=== PATIENT | female | born 1955 | race Caucasian/White ===

== ENCOUNTER 2021-06-02 12:27 | Emergency (ER) | payer OTHER, SELFPAY ==
[2021-06-02 12:33] VITALS: BP 161/97; PULSE 77; RESP 16; TEMP 36.1; O2SAT 97
--- NOTE | 2021-06-02 12:52 | ED.GENADUL_ITS ---
Discharge Plan Discharge Details Chief Complaint: Orthopedic Primary Care Provider: Viktoriya Gamino ED Provider: Brian De La Fuente Home Meds and New Rx's Prescriptions: No Action aspirin 81 mg Tablet 81 mg PO DAILY 0RF HPI General Date/Time Provider Initiated Documentation: 06/02/21 12:50 . HPI Narrative: 66-year-old lady presents to the emergency room for evaluation of left knee pain. Patient states that yesterday after getting up from bed she intermittently twisted her left knee causing her extreme pain. She fell back into bed. She has noticed some swelling of the left knee as well as pain with ambulation since the incident. When walking with a limp. She has noticed some mild swelling. No direct trauma to the knee. No fall. Pain is better with immobilization as well as with Tylenol. Pain is described as a throbbing moderate severity Related Data Home Medications Medication Instructions Recorded Confirmed aspirin 81 mg tablet 81 mg PO DAILY 06/02/21 06/02/21 Allergies Allergy/AdvReac Type Severity Reaction Status Date / Time No Known Allergies Allergy Verified 06/02/21 12:37 General Stated Complaint: Orthopedic NICK: 4 Review of Systems Narrative: Constitutional negative for fever chills. GI she did have some nausea associate with the pain. MSK see HPI. Skin intact. neuro intact. hematology not on any blood thinner [facility] Social History Smoking/Tobacco Use Status: Current every day Tobacco Type: cigarettes Smoking risk assessment performed?: Yes Drug use: Never Substance use type: does not use Exam Narrative Exam Narrative: Awake alert [place] x3 calm. Comfortable sitting in wheelchair. Normal work of breathing Normal Left knee. No swelling. Effusion. No ligamentous laxity. There is some discomfort palpation to the medial aspect of the knee inferiorly neuro grossly intact skin intact Course X-rays of the knee interpreted by me reveal ice small effusion. No bony abnormalities. Patient will be sent home with a knee immobilizer. She was told to follow with orthopedics for further evaluation and possibly an outpatient MRI Vital Signs Vital signs: Vital Signs Temperature 36.1 C L 06/02/21 12:33 Pulse 77 06/02/21 12:33 Respiratory Rate 16 06/02/21 12:33 Blood Pressure 161/97 H 06/02/21 12:33 Pulse Oximetry 97 06/02/21 12:33 Temperature 36.1 C L 06/02/21 12:33 Temperature Source Temporal Artery Scan 06/02/21 12:33 Pulse 77 06/02/21 12:33 Respiratory Rate 16 06/02/21 12:33 Respiratory Effort 06/02/21 12:33 Blood Pressure 161/97 H 06/02/21 12:33 Blood Pressure Position Sitting 06/02/21 12:33 Pulse Oximetry 97 06/02/21 12:33 Oxygen Delivery Method Room Air 06/02/21 12:33 Oxygen Flow Rate 0 06/02/21 12:33 Pain Level 8 06/02/21 12:39
--- NOTE | 2021-06-02 13:26 | DI.RAD_ITS ---
Exam(s) XR KNEE LT 4V AP,LAT,TIMOTHY,PAT EXAM: XR KNEE LT 4V AP,LAT,TIMOTHY,PAT CLINICAL HISTORY: pain TECHNIQUE: COMPARISON: No exams were available for comparison FINDINGS: Four views were obtained. No gross knee joint effusion seen on the lateral view. No evidence of acu te fracture or dislocation. IMPRESSION: RADIATION DOSE DELIVERED: Total DLP
== END 2021-06-02 13:39 | disposition home or self-care (01) ==
PROVIDERS: Emergency Provider Emergency Medicine; PCP Family Medicine
DX: M23.8X2 Other internal derangements of left knee (principal); X50.1XXA Overexertion from prolonged static or awkward postures, initial encounter
CPT/HCPCS: 29505; 99283; 73564

== ENCOUNTER 2021-06-06 10:06 | Emergency (ER) | payer OTHER, SELFPAY ==
--- NOTE | 2021-06-06 10:07 | ED.GENADUL_ITS ---
Discharge Plan Disposition Patient Disposition: HOME Condition: Stable Discharge Details Clinical Impression: Left knee sprain Primary Care Provider: Unknown,Unknown ED Provider: Tia Gutierrez Home Meds and New Rx's Prescriptions: Continued aspirin 81 mg Tablet 81 mg PO DAILY 0RF Discharge Instructions Instructions: Knee Sprain (ED) Additional Instructions: Rest, ice, and elevate the affected area as much as possible. Alternate tylenol and motrin as needed and directed for pain. Keep your knee immobilizer in place at all times until follow-up with orthopedics. You may remove it to shower. Use your cane to help limit weightbearing on your left leg when ambulating. Follow-up with your scheduled appointment with orthopedics on June 15. Return immediately to the emergency department if you develop any worsening or new concerning symptoms. Stand Alone Forms: Work Release Referrals: Salomon Nice MD [ [facility] STAFF PHYSICIAN] - Discharge Data Discharge Date/Time-TO BE ENTERED AT DEPARTURE: 06/06/21 12:10 Discharge Physician: Tia Gutierrez Medical Decision Making 66-year-old female seen here 5 days ago for a left knee injury diagnosed with knee sprain and placed in a knee immobilizer and advised to follow-up with orthopedics presents with worsening left knee pain today after she twisted it again while walking in the bathroom. Blood pressure hypertensive. Patient appears comfortable and nontoxic. She has pain with valgus and varus stress but no obvious ligamentous laxity. There is no deformity, evidence of trauma or cellulitis. She is neurovascularly intact. Discussed with patient that she could have a worsening knee sprain at this time. Will give a dose of ibuprofen and refer for x-rays. X-ray reviewed and unremarkable. Patient admits to improvement in pain after ibuprofen. Patient advised to keep her immobilizer in place and use her cane when ambulating to limit weightbearing. She is advised to take Tylenol and ibuprofen regularly to help control her pain. She has a follow-up appointment with orthopedics on June 15. Usual and customary return precautions given prior to discharge. Medical Records Medical records reviewed: Yes I reviewed the patient's medical records. Medical records narrative: 06/02/21 XR KNEE LT 4V AP,LAT,TIMOTHY,PAT CLINICAL HISTORY:? pain TECHNIQUE:? COMPARISON:? No exams were available for comparison FINDINGS: Four views were obtained.? No gross knee joint effusion seen on the lateral view.? No evidence of acute fracture or dislocation. Imaging Data Radiologic Study: Radiologist's impression: XR Left Knee Exam date and time: 06/06/2021 10:57 AM Age: 66 years old Clinical indication: Pain; Knee; Left; Patient HX: Twisting injury, fall. TECHNIQUE: Imaging protocol: XR Left knee. Views: 3 views. COMPARISON: CR XR KNEE LT 4V AP,LAT,TIMOTHY,PAT 06/02/2021 1:17 PM FINDINGS: Bones/joints: No acute bony injury or malalignment the visualized left knee. Soft tissues: No radiopaque soft tissue foreign body. IMPRESSION: No acute bony injury or malalignment the visualized left knee. Lab Data Lab results reviewed: Yes I reviewed the patient's lab results. HPI General Mode of arrival: ambulatory . Date/Time Provider Initiated Documentation: 06/06/21 10:06 . Limitations to Documentation: no limitations . Information obtained by: patient . HPI Narrative: Patient is a 56-year-old female who presents to the ED with a complaint of left knee pain since a twisting injury several days ago now worse after twisting her knee again this morning. Patient states she did her knee 5 days ago and was seen here 4 days ago and had an x-ray and placed in a knee brace and advised to follow-up with orthopedics for a knee sprain. Patient states today she was in the bathroom and was turning and was having difficulty placing weight on her left leg due to pain and twisted her knee again. She states her pain a few days ago was in her left medial knee and now she is having pain in her left lateral k nee. She states she took Tylenol for pain without relief. She states she has not taken ibuprofen as it caused diarrhea earlier this week but states she took it on an empty stomach. Related Data Home Medications Medication Instructions Recorded Confirmed aspirin 81 mg tablet 81 mg PO DAILY 06/02/21 06/02/21 Allergies Allergy/AdvReac Type Severity Reaction Status Date / Time No Known Allergies Allergy Verified 06/02/21 12:37 General Stated Complaint: Orthopedic NICK: 4 Review of Systems All systems reviewed & are unremarkable except as noted in HPI and below Constitutional Constitutional: Reports as per HPI, Denies chills and Denies fever(s) Eyes Eyes: Denies blurry vision ENT Ears, Nose, Mouth, and Throat: Denies dizziness, Denies sore throat and Denies throat swelling Cardiovascular Cardiovascular: Denies chest pain and Denies dyspnea Respiratory Respiratory: Denies cough and Denies dyspnea Gastrointestinal Gastrointestinal: Denies abdominal pain, Denies diarrhea and Denies vomiting Genitourinary Genitourinary: Denies hematuria and Denies dysuria Musculoskeletal Musculoskeletal: Denies back pain and Denies numbness Integumentary/Breasts Skin/Breast: Denies lesions and Denies rash Neurologic Neurologic: Denies dizziness, Denies localized weakness and Denies numbness Allergic/Immunologic Allergic/Immunologic: Denies throat swelling PFSH All Active Problems (Updated 06/06/21 @ 12:01 by Tia Gutierrez DO) Left knee sprain (Acute) Internal derangement of knee (Acute) Medical History (Updated 06/06/21 @ 12:01 by Tia Gutierrez DO) No significant past medical history Surgical History (Updated 06/06/21 @ 10:37 by Tia Gutierrez DO) History of appendectomy History of elbow surgery Left History of surgery on lower extremity Right thigh reconstructive surgery Social History Smoking/Tobacco Use Status: Current every day Tobacco Type: cigarettes Smoking risk assessment performed?: Yes Drug use: Never Substance use type: does not use Do you feel safe at home: Yes Do you feel safe in your relationship?: Yes Exam Const General: cooperative, healthy appearing and no acute distress Orientation: alert, awake and oriented x3 HENMT Head: normal to inspection Mouth: oral mucosae normal Eyes General: appearance normal, both eyes and all related structures Neck Neck: normal visual inspection Resp Effort & Inspection: normal respiratory effort and able to speak in complete sentences Cardio Rate: regular rate Skin General skin exam: no rashes or lesions noted Neuro General: patient alert, patient awake and patient oriented x3 Motor: muscle tone normal throughout Extrem Other: Left lower extremity: Pain in left knee with valgus and varus stress. Negative anterior and posterior drawer test. Negative Nicky's test. No obvious ligamentous laxity. Left knee normal to inspection without erythema, edema, ecchymosis. Left DP/PT pulses intact. Psych Appearance: grossly normal Affect: normal affect
[2021-06-06 10:12] VITALS: PULSE 87; RESP 18; TEMP 36.7; O2SAT 97
[2021-06-06 10:13] VITALS: BP 195/108; PULSE 88; RESP 18; TEMP 36.7; O2SAT 97
--- NOTE | 2021-06-06 10:15 | DI.RAD_ITS ---
Exam(s) XR KNEE LT 3V AP,LAT,TIMOTHY EXAM: XR KNEE LT 3V AP,LAT,TIMOTHY CLINICAL HISTORY: L knee pain after twisting injury, r/o effusion/fx TECHNIQUE: COMPARISON: CR XR KNEE LT 4V AP,LAT,TIMOTHY,PAT from 06/02/2021 FINDINGS: Four views were obtained. No gross knee joint effusion seen on the lateral view. No evidence of acu te fracture or dislocation. IMPRESSION: RADIATION DOSE DELIVERED: Total DLP
[2021-06-06 10:21] VITALS: BP 185/103; PULSE 81; O2SAT 97
[2021-06-06 10:22] VITALS: O2SAT 98
[2021-06-06 10:31] VITALS: BP 181/99; PULSE 75; O2SAT 96
[2021-06-06] MEDS: Ibuprofen 600 MG TAB PO (10:34)
--- NOTE | 2021-06-06 11:31 | DI.VRAD_ITS ---
PROCEDURE INFORMATION: Exam: XR Left Knee Exam date and time: 06/06/2021 10:57 AM Age: 66 years old Clinical indication: Pain; Knee; Left; Patient HX: Twisting injury, fall. TECHNIQUE: Imaging protocol: XR Left knee. Views: 3 views. COMPARISON: CR XR KNEE LT 4V AP,LAT,TIMOTHY,PAT 06/02/2021 1:17 PM FINDINGS: Bones/joints: No acute bony injury or malalignment the visualized left knee. Soft tissues: No radiopaque soft tissue foreign body. IMPRESSION: No acute bony injury or malalignment the visualized left knee. Dictated and Authenticated by: Ed Ron MD. Ordering:RAHAT Weber MD
[2021-06-06 12:19] VITALS: BP 178/90; PULSE 70; RESP 18; TEMP 36.8; O2SAT 99
== END 2021-06-06 12:10 | disposition home or self-care (01) ==
PROVIDERS: Emergency Provider Physician Assistant
DX: S83.8X2A Sprain of other specified parts of left knee, initial encounter (principal); X50.1XXA Overexertion from prolonged static or awkward postures, initial encounter
CPT/HCPCS: 73562; 99283

== ENCOUNTER → 2021-07-15 01:23 | Outpatient (CLI) | payer OTHER, SELFPAY ==
--- NOTE | 2021-07-15 10:40 | DI.MRI_ITS ---
Exam(s) MR LOWER JOINT LT WO EXAM: MR LOWER JOINT LT WO CLINICAL HISTORY: INTERNAL DERANGEMENT OF LT KNEE, M23.92 TECHNIQUE: Multiplanar multisequence MRI of the knee was performed. COMPARISON: CR,XR XR KNEE LT 3V AP,LAT,TIMOTHY from 06/06/2021 FINDINGS: EFFUSION: There is no evidence of joint effusion. There is a thin Nelson cyst in the medial popliteal fossa which measures 4 cm length. MARROW:There is no evidence of fracture. Mild intraosseous edema is noted in the lateral tibial plat eau and in the fibular head and neck, without fracture lines. There are no significant osseous lesio ns. PATELLOFEMORAL COMPARTMENT: The quadriceps tendon is intact. There is subcutaneous edema anterior to the patellar ligament but the patellar ligament is intact. There is no significant thinning of the retropatellar cartilage. No evidence of fissure nor signific ant chondral defect. No osteochondral defect at this level.There is no intraosseous signal to sugges t recent patellar dislocation. There are no patellar retinacular tears. CRUCIATE LIGAMENTS: The anterior cruciate ligament is intact.The posterior cruciate ligament is intac t. MEDIAL COMPARTMENT/MEDIAL MENISCUS: There is some myxoid degeneration signal in the posterior horn of the medial meniscus. This, however, does not violate an articular surface. The meniscal root is in tact. There is no meniscal extrusion nor intrusion and no evidence of meniscocapsular separation.The re is mild cartilage thinning over the anterior weight-bearing surface of the medial condyle. No lar ge chondral defects.. No osteochondral defects. No osteophytes. MEDIAL COLLATERAL LIGAMENT: Intact LATERAL COMPARTMENT/LATERAL MENISCUS: There is no evidence of lateral meniscal tear.There are no katy dral defects, osteochondral defects, subarticular marrow edema, nor osteophytes evident. ILIOTIBIAL BAND: Intact LATERAL COLLATERAL LIGAMENT COMPLEX: The fibular collateral ligament is intact. The biceps femoris t endon is intact.Popliteus muscle and tendon are intact. IMPRESSION: 1. Mild findings as described above. 2. Some myxoid degeneration signal is noted in the posterior horn of the medial meniscus but there ar e no true meniscal tears, meniscal extrusion nor intrusion, nor meniscocapsular separation. 3. The cruciate and collateral ligaments are intact. 4. There is prominent subcutaneous edema anterior to the lower 3rd of the patella and the upper 2/3 o f the patellar ligament. There is no evidence of intraosseous signal within the patella and the cheng llar ligament is intact. There is also no abnormal signal within the anterior intra-articular Hoffa fat pad nor within the quadriceps fat pad just above the patella. Quadriceps tendon is intact. Retr opatellar cartilage exhibits normal thickness 5. There is no joint effusion but there is a thin Nelson's cyst in the medial popliteal fossa measuri ng approximately 4 cm length. DATA REPOSITORY:
== END ==
PROVIDERS: Visit Provider Physician Assistant
DX: M23.8X1 Other internal derangements of right knee (principal)
CPT/HCPCS: 73721

== ENCOUNTER 2021-08-09 11:41 | Outpatient (CLI) | payer OTHER, SELFPAY ==
--- NOTE | 2021-08-09 09:45 | DI.RAD_ITS ---
Exam(s) XR HIP RT COMPLETE AP PELVIS EXAM: XR HIP RT COMPLETE AP PELVIS CLINICAL HISTORY: RIGHT HIP PAIN. TECHNIQUE: 2D digital imaging was performed. COMPARISON: No exams were available for comparison FINDINGS: Two views There are no pelvic or hip fractures but there is severe advanced osteoarthritic narrowing of both hi p joints. Also degenerative subarticular cysts are seen on both sides of the hip joints both in the femoral heads and superior aspect of the acetabulum on both sides. Incidentally noted is narrowing of the left side of the L4-5 disc space which is included in the fiel d of view here. Sacroiliac joints appear unremarkable. 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 DATA REPOSITORY: RADIATION DOSE DELIVERED:
== END 2021-08-09 11:42 | disposition home or self-care (01) ==
LOC: DIORS 11:42
PROVIDERS: Visit Provider Student in an Organized Health Care Education/Training Program
DX: M25.551 Pain in right hip (principal); M16.0 Bilateral primary osteoarthritis of hip
CPT/HCPCS: 73502

== ENCOUNTER 2021-11-04 14:50 | Outpatient (CLI) | payer OTHER, SELFPAY ==
--- NOTE | 2021-11-04 13:30 | DI.RAD_ITS ---
Exam(s) XR PELVIS AP EXAM: XR PELVIS AP CLINICAL HISTORY: pre op BILAT THAs. TECHNIQUE: 2D digital imaging was performed. Single AP view with template ball COMPARISON: CR XR HIP RT COMPLETE AP PELVIS from 08/09/2021 FINDINGS: Again noted are severe degenerative changes of both hips, right greater left. There is prominent per iarticular spurring bilaterally. There is obliteration of the joint spaces with remodeling of the fe moral heads and acetabula. Large subchondral cysts are seen bilaterally in both sides of the joints. IMPRESSION: End-stage degenerative changes of both hips. DATA REPOSITORY: RADIATION DOSE DELIVERED:
== END 2021-11-04 14:51 | disposition home or self-care (01) ==
LOC: DIORS 14:50
PROVIDERS: PCP Nurse Practitioner; Referring Provider Nurse Practitioner; Visit Provider Physician Assistant
DX: M16.0 Bilateral primary osteoarthritis of hip (principal)
CPT/HCPCS: 72170

== ENCOUNTER 2021-11-08 02:44 | Outpatient (CLI) | payer OTHER, SELFPAY ==
[2021-11-08 13:48] LABS: HCT 44.3 % (36.0-46.0); HGB 15.2 g/dL (11.2-15.7); MCH 32.6 pg (27.0-33.0); MCHC 34.3 % (32.0-36.0); MCV 95 fL (80-95); MPV 8.9 fL (8.0-11.0); Platelet Count 326 10^3/uL (130-400); RBC 4.66 10^6/uL (3.93-5.22); RDW 11.9 % (11.7-14.6); RDW-SD 41.6 fL; WBC 9.43 10^3/uL (4.4-10.8)
[2021-11-08 14:57] LABS: BUN 18 mg/dL (7-18); CREATININE 0.8 mg/dL (0.55-1.02); Calcium 9.4 mg/dL (8.5-10.1); Chloride 102 mmol/L (98-107); Estimated GFR 81.21 (mL/min/1.73m2); Glucose 101 mg/dL (74-106); Potassium 3.7 mmol/L (3.5-5.1); Sodium 138 mmol/L (136-145)
== END 2021-11-08 02:45 | disposition home or self-care (01) ==
LOC: LBO 02:44
PROVIDERS: PCP Nurse Practitioner; Visit Provider Student in an Organized Health Care Education/Training Program
DX: M25.551 Pain in right hip (principal); M25.552 Pain in left hip; M16.0 Bilateral primary osteoarthritis of hip; Z01.818 Encounter for other preprocedural examination; Z01.812 Encounter for preprocedural laboratory examination
CPT/HCPCS: 36415; 80048; 85027; 86850; 86900; 86901

== ENCOUNTER 2021-11-10 05:55 | Day surgery (SDC) | payer OTHER, SELFPAY ==
--- NOTE | 2021-11-09 18:39 | W.ANESPRE ---
General Info Date of Service Date Performed: 11/10/21 Height: 5 ft 5 in Weight: 59.421 kg Body Mass Index (BMI): 21.8 Surgical Procedure: Operation Date: 11/10/21 08:00 Proposed Procedure Side Surgeon p Hip Total Hip Anterior Bilateral Bilateral Salomon Nice MD Meds Allergies and Home Medications Allergies Allergy/AdvReac Type Severity Reaction Status Date / Time No Known Allergies Allergy Verified 11/10/21 06:13 Home Medication Medication Instructions Recorded aspirin 81 mg tablet 81 mg PO DAILY 06/02/21 nicotine 14 mg/24 hr daily 1 patch transdermal DAILY #28 ea 08/18/21 transdermal patch acetaminophen 500 mg tablet 500 mg PO QID PRN Pain in hips and 09/01/21 knees lisinopril 10 mg tablet 20 mg PO DAILY 11/09/21 Current Visit Medications: Current Medications Generic Name Dose Route Start Last Admin Trade Name Freq PRN Reason Stop Dose Admin Acetaminophen 1,000 mg 11/10/21 06:00 Acetaminophen 500 Mg Tab PO 11/10/21 16:00 PREOP KARLA Celecoxib 400 mg 11/10/21 06:00 Celecoxib 200 Mg Cap PO 11/10/21 16:00 PREOP KARLA Tranexamic Acid 1,000 mg/ 60 mls @ 360 mls/hr 11/10/21 06:00 Sodium Chloride IV 11/10/21 16:00 PREOP KARLA Tranexamic Acid 1,000 mg/ 60 mls @ 360 mls/hr 11/10/21 06:00 Sodium Chloride IV 11/10/21 16:00 DIRECTED KARLA Ringer's Solution 1,000 mls @ 80 mls/hr 11/10/21 06:00 IV 12/09/21 23:59 INFUSION KARLA Cefazolin Sodium/Dextrose 2 gm in 50 mls @ 100 mls/hr 11/10/21 06:00 Ancef Duplex IVPB 11/10/21 16:00 PREOP KARLA IV Miscellaneous Supplies 1 each 11/10/21 06:00 Iv Access IV 12/09/21 23:59 DIRECTED KARLA Sodium Chloride 0 ml 11/10/21 06:00 Normal Saline Flush 10 Ml Syr IV 12/09/21 23:59 PRN PRN Sodium Chloride 0 ml 11/10/21 06:00 Normal Saline 10 Ml Vial IJ 12/09/21 23:59 DIRECTED PRN Sterile Water 0 ml 11/10/21 06:00 Water,Injection,Sterile 10 Ml Vial IJ 12/09/21 23:59 DIRECTED PRN PFSH Active Problems Active Problems: Problem Status Onset Code Smoker F17.200 Hypertension I10 Degenerative joint disease of right hip M16.11 Degenerative joint disease of left hip M16.12 Internal derangement of left knee 06/02/21 M23.92 Medical History Medical History (Updated 11/10/21 @ 06:20 by Emily Beckett) History of skull fracture age 9 Hx of essential hypertension Surgical History Surgical History Fracture of left distal radius treated with closed reduction History of appendectomy History of elbow surgery Left History of surgery on lower extremity Right thigh reconstructive surgery Tobacco Smoking/Tobacco Use Status: Current-Occasional Tobacco Type: cigarettes Smoking cigarettes per day: 4 Years smoked: 20 Smoking pack-years: 4.00 Alcohol Alcohol Intake: former Substance Use Substance use: Never Substance use type: does not use Vital Signs and Lab Results Lab Results Blood Type / Crossmatch: Patient ABO/Rh A Negative 11/08/21 Antibody Screen NEGATIVE 11/08/21 Complete Blood Count: White Blood Count 9.43 10^3/uL (4.4-10.8) 11/08/21 13:40 Red Blood Count 4.66 10^6/uL (3.93-5.22) 11/08/21 13:40 Hemoglobin 15.2 g/dL (11.2-15.7) 11/08/21 13:40 Hematocrit 44.3 % (36.0-46.0) 11/08/21 13:40 Platelet Count 326 10^3/uL (130-400) 11/08/21 13:40 Complete Metabolic Panel: Sodium Level 138 mmol/L (136-145) 11/08/21 13:40 Potassium Level 3.7 mmol/L (3.5-5.1) 11/08/21 13:40 Chloride Level 102 mmol/L (98-107) 11/08/21 13:40 Carbon Dioxide Level 22.0 mmol/L (21.0-32.0) 11/08/21 13:40 Blood Urea Nitrogen 18 mg/dL (7-18) 11/08/21 13:40 Creatinine 0.8 mg/dL (0.55-1.02) 11/08/21 13:40 Calcium Level 9.4 mg/dL (8.5-10.1) 11/08/21 13:40 Glucose Level 101 mg/dL (74-106) 11/08/21 13:40 Liver Function Panel: No Data to Display Coagulation Panel: No Data to Display Cardiac Panel: No Data to Display Arterial Blood Gas: No Data to Display Venous Blood Gas: No Data to Display Pancreas Panel: No Data to Display Thyroid Panel: No Data to Display Infectious Disease: No Data to Display Blood Cultures: No Data to Display Toxicology Panel: No Data to Display Imaging and Studies Imaging and Studies Study information below may be from another EMR and interpreted by another provider. Please see original notes in EMR for more complete details. EKG Summary: 04/2021: sinus. Anesthesia Assessment and Plan Anesthesia History Personal History: No History of Anesthesia Complications Family History: No Family History of Anesthesia Complications Exercise Tolerance Exercise Tolerance: Metabolic Equivalents>4 Cardiac & Pulmonary Exam Cardiac Exam: Normal S1/S2 Heart Sounds Pulmonary Exam: Clear Bilateral Breath Sounds Implantable Cardiac Device Does patient have a Pacemaker or an ICD?: No Airway Exam Known Difficult Airway: No Mallampati Class: 2 Mouth Opening: Normal (> 3cm) Thyromental Distance: Greater than 3 cm Neck Range of Motion: Full ROM Neck Circumference: Normal Teeth Condition: Normal Dentition ASA Classification ASA Score: ASA 3 Emergency Case?: No NPO Status NPO Status: NPO Clears >2 hours, Solids >8 hours Anesthesia Plan Resuscitation Status: Full Code Anesthesia Technique: Spinal Anesthesia Airway Planned: Natural Airway Monitors Used: Standard Monitors Preoperative Comments:: 66 yo female for bilateral NUBIA. Sig PMHx: HTN (not well controlled, has been working with her PCP to bring it down, lisinopril was just increased to 20 mg - which she took today). She keeps track of her BP at home), occ smoker/etoh, denies other major.
[2021-11-10] VITALS (11 sets, daily range): BP systolic 99–150; BP diastolic 59–97; PULSE 58–75; RESP 14–20; TEMP 36–36.4; O2SAT 96–99; BMI 21.8
[2021-11-10] MEDS: Celecoxib 200 MG CAP 400 MG PO (06:33)
[2021-11-10] MEDS: Acetaminophen 500 MG TAB 1000 MG PO (06:33)
[2021-11-10] MEDS: Lactated Ringers 1,000 ML 80 ML IV (06:45)
[2021-11-10 06:47] LABS: Source Nasal/Nares
--- NOTE | 2021-11-10 07:00 | DI.RAD_ITS ---
Exam(s) XR HIP LT IN OR EXAM: XR HIP LT IN OR CLINICAL HISTORY: bilateral total hip TECHNIQUE: 2D and realtime digital imaging was performed. COMPARISON: No exams were available for comparison FINDINGS: C-arm fluoroscopy was utilized by Dr. Nice during left hip joint replacement. Hard copy shows to paula hip joint replacement in position. IMPRESSION: RADIATION DOSE DELIVERED: rosana Campos=2.87 mGy
--- NOTE | 2021-11-10 07:00 | DI.RAD_ITS ---
Exam(s) XR HIP RT IN OR EXAM: XR HIP RT IN OR CLINICAL HISTORY: bilateral total hip TECHNIQUE: 2D and realtime digital imaging was performed. COMPARISON: No exams were available for comparison FINDINGS: C-arm fluoroscopy was utilized by Dr. Nice during hip joint replacement. Hard copies show right hip joint replacement in position. IMPRESSION: RADIATION DOSE DELIVERED: rosana Campos=1.51 mGy
--- NOTE | 2021-11-10 07:18 | W.PM.DS.N ---
DS: Diagnosis Discharge Diagnosis (1) Degenerative joint disease of left hip: Status: Acute (2) Degenerative joint disease of right hip: Status: Acute Discharge Plan Disposition Patient Disposition: HOME Condition: Good Discharge Details Reason For Visit: Bilateral hip DJD Attending Provider: Salomon Nice Primary Care Provider: Vanessa Sanabria Home Meds and New Rx's Prescriptions: New celecoxib [Celebrex] 200 mg capsule 200 mg PO BID Qty: 30 0RF aspirin 81 mg tablet,delayed release (DR/EC) 81 mg PO BID 30 Days Qty: 60 0RF acetaminophen 500 mg tablet 500 mg PO Q6H PRN (Reason: pain) Qty: 60 2RF pantoprazole 40 mg tablet,delayed release (DR/EC) 40 mg PO DAILY 14 Days Qty: 14 0RF docusate sodium [Colace] 100 mg capsule 100 mg PO BID Qty: 30 0RF oxycodone 5 mg tablet 5 mg PO Q6H PRN (Reason: severe post-operative pain) Qty: 12 0RF Rx Instructions: Take one tablet up to every 6 hours as needed for severe pain dexamethasone 4 mg tablet 8 mg PO DAILY Qty: 4 0RF Rx Instructions: Starting Post-Operative Day #1 (Day after surgery) Continued nicotine 14 mg/24 hr patch 24 hour 1 patch transdermal DAILY Qty: 28 0RF lisinopril 10 mg tablet 20 mg PO DAILY Discontinued acetaminophen 500 mg tablet 1,000 mg PO QID PRN (Reason: Pain in hips and knees) aspirin 81 mg Tablet 81 mg PO DAILY Discharge Instructions Additional Instructions: Total Hip Discharge Instructions Activity: The most important activity is to walk. You should try to take short walks a few times a day. You have no restrictions on movement or positioning, but do not try to force what you do. You will find some stiffness and weakness with hip flexion (lifting your knee). Do not try to strengthen this too early, continue to practice walking and stairs and this will come. - Outpatient physical therapy can be helpful to help return you to a normal gait and improve your flexibility and strength. This can start around 2 weeks. For some patients, it?s not necessary. Usually this is determined at the time of discharge or at the first post-operative visit. - You should wear the TASHA hose on both legs for 2 weeks. Dressing: Keep the surgical dressing in place for at least one week. After the first week it may be removed and replace with light gauze and tape or nothing. It may get wet after 3 days but avoid soaking the dressing. If it gets wet, just lightly pat dry. It is important to always keep some gauze between skin folds, especially when you are sitting. Spend some time with the wound exposed when you are lying flat as the incision does wrinkle onto itself. Medications: - You should take Tylenol and an anti-inflammatory Celebrex as your primary pain control medications. If the Celebrex is too expensive or not covered, please call the office for another alternative (Advil/Ibuprofen or Naproxen/Aleve). - You have been prescribed a stronger pain medication Oxycodone for breakthrough pain, take as needed as prescribed. - You have also been prescribed a stomach acid reduction agent Pantoprozole to help reduce stomach acid and reflux. - You will be taking Aspirin 81mg twice a day for DVT prevention unless instructed otherwise. - You also have been prescribed Decadron for post-operative nausea and pain. - If you have constipation you should take Colace (which has been prescribed) or Miralax (which is available [id number]). It takes most people 3-4 days to have a bowel movement. - You should also start Vitamin D and Calcium. You should take 1500mg of Calcium and 800-1000 IU of Vitamin D3. This is over the counter and usually available in a combined tablet. Follow-up: 2 weeks If you have any acute concerns or questions, please do not hesitate to contact the office at [phone]. You may contact Dr. Nice with any questions after hours through the hospital at [phone] or on his cell phone at [phone]. Stand Alone Forms: Anesthesia Discharge Inst., Trista Singh (DSU) Referrals: Salomon Nice MD [ [facility] STAFF PHYSICIAN] - Equipment/Supplies: Walker Activity:: Activity as Tolerated Remove Dressings/Wound Care:: Do Not Remove Shower/Bathe:: Cover Diet:: As Tolerated Discharge Orders Discharge Orders: Discharge Order (Routine); Ordered 11/10/21 Ordered By: Salomon Nice DS: Summary Time Spent with Patient providing and/or coordinating discharge services: Less than 30 minutes Status at Discharge Functional status at discharge: uses cane/walker Overall status at discharge: patient is progressing back to baseline Mental Status: mental status grossly normal Speech and Movement: speech and movement normal Mood: congruent mood Affect: normal affect Exam Psych Mental Status: mental status grossly normal Speech and Movement: speech and movement normal Mood: congruent mood Affect: normal affect DS: Data Vitals/I&O Vitals and I&O: Vital Signs Temperature 96.8 F L 11/10/21 06:26 Pulse 75 11/10/21 06:26 Pulse Rhythm Regular 11/10/21 06:26 Respiratory Rate 18 11/10/21 06:26 Respiratory Depth Normal 11/10/21 06:26 Blood Pressure 150/97 H 11/10/21 06:26 Pulse Oximetry 98 11/10/21 06:26 Oxygen Delivery Method Room Air 11/10/21 06:26 Oxygen Flow Rate 0 11/10/21 06:26 Pain Level 9 11/10/21 06:26 Intake & Output 11/09/21 11/09/21 11/10/21 11:59 23:59 11:59 Weight 131 lb 0.014 oz 128 lb 15.527 oz Data Completed and Pending Labs on day of discharge: Labs from last 24 hours 11/10/21 06:07 COVID-19 Source Nasal/Nares SARS-CoV-2 (PCR) Pending [facility] All Active Problems Internal derangement of left knee (Acute 06/02/21) Degenerative joint disease of left hip (Acute) Degenerative joint disease of right hip (Acute) Hypertension (Chronic) Smoker (Acute) Medical History History of skull fracture age 9 Hx of essential hypertension Surgical History Fracture of left distal radius treated with closed reduction History of appendectomy History of elbow surgery Left History of surgery on lower extremity Right thigh reconstructive surgery Family History Mother Cancer Endometrial Heart disease Sister Cancer Thyroid Depression Hypertension Father Depression Heart disease Hypertension Brother Hypertension Social History Smoking/Tobacco Use Status: Current-Occasional Tobacco Type: cigarettes Years smoked: 20 Tobacco: How many years used: 20 Smoking risk assessment performed?: Yes Alcohol Intake: former Drug use: Never Substance use type: does not use Adopted: No Caregiver/Support person: No Foster care: No Household members: spouse Housing: house Sexually active: Yes Do you think of yourself as: straight/heterosexual Current gender identity: female Do you feel safe at home: Yes Do you feel safe in your relationship?: Yes Additional Social history: unable to assess
[2021-11-10] MEDS: ceFAZolin 2 GM/50 ML BAG IVPB (07:46)
[2021-11-10 08:20] LABS: COVID-19 PCR Negative (Negative)
--- NOTE | 2021-11-10 10:18 | ROE_ITS ---
Date of service: 11/10/21 Time of Service: 10:19 Operative Note Operative Note DATE OF PROCEDURE: 09/11/19 PRE-OP DIAGNOSIS: Bilateral Hip Osteoarthritis POST-OP DIAGNOSIS: same PROCEDURE: Bilateral Anterior Total Hip Arthroplasty with Intraoperative Navigation SURGEON: Salomon Nice CABIN SERVICE AGENT: Aurora Woodard ANESTHESIA TYPE: Spinal Refer to Anesthesia Record ESTIMATED BLOOD LOSS: 300 PATHOLOGY: none sent COMPLICATIONS: None Patient was transported to: PACU Patient's condition: stable Implants: RIGHT: 1. Depuy Whittier Acetabular Component, 52mm 2. Depuy Acetabular Liner, [id number] 3. Depuy Corail Standard Collared Femoral Stem, Size 14 4. Depuy Altrx Ceramic Femoral Head, Size 36+5mm LEFT: 1. Depuy Whittier Acetabular Component, 52mm 2. Depuy Acetabular Liner, [id number] 3. Depuy Corail Standard Collared Femoral Stem, Size 14 4. Depuy Altrx Ceramic Femoral Head, Size 36+5mm Indications: I have seen Geovanna in clinic for symptoms of hip arthritis, confirmed with radiographic findings. She has exhausted nonoperative methods and was having significant limitations in daily function and desired better function and less pain. I discussed the technical details of a hip replacement. I explained the risks of the procedure to include, but not limited to, bleeding, infection, pain, stiffness, fracture, damage to nerves and vessels, damage to muscles and tendons, loosening, instability, leg length inequality, need for repeat procedure, blood clot and cardiopulmonary demise. Despite these risks, Geovanna elected to proceed. Findings: There was significant signs of arthritis throughout both hips with deformity of the femoral heads and large osteophytes throughout. Procedure Description: Geovanna was greeted in the preoperative holding area where the correct side was identified and marked. The consent was reviewed with the patient and signed. The history and physical was updated. All questions were answered. She was taken back to the operating room. A spinal anesthestic was then administered. The patient was placed into the supine position on the HANA table. Both feet were wrapped with Webrill cotton wrap along with Coban. RIGHT Side The feet were placed in specialized boots for the HANA table, well seated within the boot and secured. SCDs were applied. The patient was then slid down onto a peroneal post. A preoperative AP hip was obtained to serve as a reference for determining leg lengths. Prophylactic antibiotics in the form of Cefazolin were administered. 1g of Tranxemic Acid was given intravenously within 30 minutes of incision. The right leg was then prepped with Chloraprep and draped in a standard fashion. A second prep with Chloraprep was performed prior to placement of a shower-curtain type drape with Iodine impregnated skin protection. A timeout to confirm correct identity, side and site, procedure, allergies, anesthesia, and medical concerns was performed. An obliquely oriented incision was made starting lateral to the ASIS and running distal over the Tensor Fascia Venus (TFL) muscle belly toward the fibular head, approximately 10cm. The skin and soft tissue was dissected sharply, through Gasper?s fascia, and to the fascia of the TFL. With the fascia and superior border of the IT band identified, the fascia was incised with a new knife just above any perforators from the IT band. The TFL muscle belly was bluntly dissected away from the fascia and moved laterally. The fat between TFL and rectus was identified to ensure the dissection was not within the TFL. Blunt dissection created space between abductors and the capsule and retractor was placed over the lateral femoral neck. The fibers of the rectus femoris tendon were identified and these were freed from the anterior capsule. A second cobra retractor was placed around the medial femoral neck. The TFL was further retracted laterally to show the deep fascia. Careful dissection through this layer identified three main crossing vessels of the lateral femoral circumflex. These were cauterized in multiple locations and then cut without any noticeable bleeding. The TFL was further released bluntly from the deep fascia to expose anterior hip capsule and fat The Jose Alberto orthopaedic retractor was then placed beneath the TFL and against sartorius and medial soft tissues to protect and retract the soft tissues. A T-capsulotomy was then performed starting at the superior lateral acetabulum and moving distally to the intertrochanteric ridge. These capsular flaps were tagged with a No. 1 Ethibond and elevated from within. The capsular flaps were released to the shoulder of the lateral neck and to the lesser trochanter to give excellent visualization of the proximal femur. A neck osteotomy was performed using an oscillating saw based on preoperative templates. This cut started in the shoulder and of the lateral neck and exited medially. The saw was at all times directed medially to avoid injury to the greater trochanter. Gentle traction was applied to the leg and the osteotomy opened. The femoral head was removed with a corkscrew, making sure to protect the TFL on its exit. This was measured on the back table to determing the starting reamer size. Portions of the rectus obscuring visualization were minimally elevated off the superior acetabulum. An anterior retractor was placed over the anterior wall between capsule and labrum and attached to the Gripper retraction system. A posterior retractor was placed similarly. This provided excellent visualization. The contents of the cotyloid fossa were removed with electrocautery and the labrum was removed with a knife. There was a notable floor osteophyte. There was significant chondromalacia of the superior acetabulum. Acetabular reaming began with a 48mm reamer. This first reaming was directed anterior to posterior and medial to get down to the true floor. This was inspe cted and reamed until the true floor was reached. The anterior retractor was then released and entry and exit was provided by traction on the capsular flaps. I then reamed sequentially up to a 52mm reamer where good fit was obtained. The larger reamers were oriented based on anatomical reference of the anterior and lateral bond to ensure proper abduction and anteversion. Positioning and size was confirmed with the fluoroscopy. A 52mm Depuy Whittier acetabular component was selected. The acetabulum was reamed around the periphery with the selected acetabular size to prevent a rim fit. The deep tissues were irrigated. The acetabular component was then impacted in a position of about 40-45 degrees of abduction and 15-20 degrees of anteversion, using the patient?s anatomy as the ultimate landmark. Fluoroscopy was used to confirm this. There was excellent special collections librarian of the acetabular component and the inserting handle was removed. The acetabular liner, Depuy [id number] polyethylene liner, was inserted and lined up with the tines of the acetabular component. There was no soft tissue interposition. The liner was then impacted into position and confirmed to be well-seated. A portion of the silke-articular cocktail was then injected around the acetabulum into the capsule and periosteum. This cocktail consisted of 123mg of Ropivacaine, 0.25mg of Epinephrine, 0.04mg of Clonidine, and 15mg of Ketorolac, diluted to 50cc. Traction was released from the femur. The leg was rotated to 120 degrees. Any remaining medial capsule was released until the lesser trochanter was easily palpable. A Moreno retractor was placed medially. The lateral capsule was further released into the shoulder to allow access to the greater trochanter. A Moreno retractor was placed over the greater trochanter which allowed the trochanter to flip in front of the capsule for excellent exposure. The leg was brought down into maximal extension and 20 degrees of adduction while ensuring there was no impingement on the acetabulum. Any remnant capsule within the trochanter was released. Piriformis and obturator externis were identified and protected. There was excellent access to the proximal femur. The lateral neck remnant was removed with a rongeur. A blunt canal probe was used to identify the canal and trajectory for later broaching. A box osteotome initiated the broach course. A small curved rasp and a curved curette were used to work laterally. Broaching then began with a size 8 Corail broach. This was inserted manually around the trochanter and into the canal before mallet blows. The broach was seated to a few millimeters below the cut level based on the neck cut and the preoperative template. Sequential broaching was continued until a tight fit was obtained with good rotational control of the femur. A trial standard neck was inserted along with a +1.5 trial head. The leg was brought out of extension and adduction and then reduced with traction and internal rotation. The leg was stable anteriorly in a position of 30 degrees of extension and 90 degrees of external rotation. Fluoroscopy was used to ensure there was no fracture and the stem was seated well. Leg lengths were checked with an AP pelvis and pelvic reference points. Physicians Interactive navigation system was used to confirm appropriate positioning and leg length and offset. An increase to a +5 head would improve offset and leg length, with the goal of increasing about 5-6mm. Once content with the desired offset and leg lengths, the leg was brought back into extension, external rotation and a dduction. The periosteum and surrounding tissue was injected with remaining portion of the silke-articular cocktail. The proximal femur was irrigated as well as the deep tissues. The Depuy Corail standard collared stem, size 14, was then manually inserted into the proximal femur making sure to control rotation. It was then malleted into position with light blows, giving breaks to allow bone expansion and decrease risk of fracture. The selected Depuy Altrx Ceramic Head, size 36+5mm, was then placed onto the clean and dry trunnion and secured with impaction onto the tapered fit. The leg was brought back out of extension and adduction and reduced with traction and internal rotation. Stability was confirmed with no shuck at 90 degrees of external rotation and 30 degrees of extension. No impingement through range of motion arc. Final x-ray images were obtained with fluoroscopy to confirm adequate positioning and no intraoperative fracture. The deep tissues were thoroughly irrigated with Irrisept chlorhexadine solution. The second dose of TXA 1g was administered intravenously in preparation of the other side. The capsule was then reapproximated with the previously placed Ethibond sutures. The TFL fascia was finally closed with a No. 2 Stratafix, barbed suture. Deep tissues were then reapproximated with 0 Vicryl and a running 2-0 Vicryl. The skin was closed with a running 4-0 Monocryl in a subcuticular fashion. This was reinforced with skin glue. A Mepilex silver dressing was applied. LEFT Side Keeping the back table sterile, the drapes were removed, light handles changed, and fluoroscopy switched rooms sides. Once again, a AP hip was obtained to serve as a reference for determining leg lengths. The left leg was then prepped with Chloraprep and draped in a standard fashion. A second prep with Chloraprep was performed prior to placement of a shower-curtain type drape with Iodine impregnated skin protection. A timeout was once again performed to ensure that there were no issues to proceed. An obliquely oriented incision was made starting lateral to the ASIS and running distal over the Tensor Fascia Venus (TFL) muscle belly toward the fibular head, approximately 10cm. The skin and soft tissue was dissected sharply, through Gasper?s fascia, and to the fascia of the TFL. With the fascia and superior border of the IT band identified, the fascia was incised with a new knife just above any perforators from the IT band. The TFL muscle belly was bluntly dissected away from the fascia and moved laterally. The fat between TFL and rectus was identified to ensure the dissection was not within the TFL. Blunt dissection created space between abductors and the capsule and retractor was placed over the lateral femoral neck. The fibers of the rectus femoris tendon were identified and these were freed from the anterior capsule. A second cobra retractor was placed around the medial femoral neck. The TFL was further retracted laterally to show the deep fascia. Careful dissection through this layer identified three main crossing vessels of the lateral femoral circumflex. These were cauterized in multiple locations and then cut without any noticeable bleeding. The TFL was further released bluntly from the deep fascia to expose anterior hip capsule and fat The Jose Alberto orthopaedic retractor was then placed beneath the TFL and against sartorius and medial soft tissues to protect and retract the soft tissues. A T-capsulotomy was then performed starting at the superior lateral acetabulum and moving distally to the intertrochanteric ridge. These capsular flaps were tagged with a No. 1 Ethibond and elevated from within. The capsular flaps were released to the shoulder of the lateral neck and to the lesser trochanter to give excellent visualization of the proximal femur. A neck osteotomy was performed using an oscillating saw based on preoperative templates. This cut started in the shoulder and of the lateral neck and exited medially. The saw was at all times directed medially to avoid injury to the greater trochanter. Gentle traction was applied to the leg and the osteotomy opened. The femoral head was removed with a corkscrew, making sure to protect the TFL on its exit. This was measured on the back table to determing the starting reamer size. Portions of the rectus obscuring visualization were minimally elevated off the superior acetabulum. An anterior retractor was placed over the anterior wall between capsule and labrum and attached to the Gripper retraction system. A posterior retractor was placed similarly. This provided excellent visualization. The contents of the cotyloid fossa were removed with electrocautery and the labrum was removed with a knife. There was a notable floor osteophyte. There was significant chondromalacia of the superior acetabulum. Acetabular reaming began with a 48mm reamer. This first reaming was directed anterior to posterior and medial to get down to the true floor. This was inspected and reamed until the true floor was reached. The anterior retractor was then released and entry and exit was provided by traction on the capsular flaps. I then reamed sequentially up to a 52mm reamer where good fit was obtained. The larger reamers were oriented based on anatomical reference of the anterior and lateral bond to ensure proper abduction and anteversion. Positioning and size was confirmed with the fluoroscopy. A 52mm TherOxuy Whittier acetabular component was selected. The acetabulum was reamed around the periphery with the selected acetabular size to prevent a rim fit. The deep tissues were irrigated. The acetabular component was then impacted in a position of about 40-45 degrees of abduction and 15-20 degrees of anteversion, using the patient?s anatomy as the ultimate landmark. Fluoroscopy was used to confirm this. There was excellent special collections librarian of the acetabular component and the inserting handle was removed. The acetabular liner, Depuy [id number] polyethylene liner, was inserted and lined up with the tines of the acetabular component. There was no soft tissue interposition. The liner was then impacted into position and confirmed to be well-seated. A portion of the silke-articular cocktail was then injected around the acetabulum into the capsule and periosteum. This cocktail consisted of 123mg of Ropivacaine, 0.25mg of Epinephrine, 0.04mg of Clonidine, and 15mg of Ketorolac, diluted to 50cc. Traction was released from the femur. The leg was rotated to 120 degrees. Any remaining medial capsule was released until the lesser trochanter was easily palpable. A Moreno retractor was placed medially. The lateral capsule was further released into the shoulder to allow access to the greater trochanter. A Moreno retractor was placed over the greater trochanter which allowed the trochanter to flip in front of the capsule for excellent exposure. The leg was brought down into maximal extension and 20 degrees of adduction while ensuring there was no impingement on the acetabulum. Any remnant capsule within the trochanter was released. Piriformis and obturator externis were identified and protected. There was excellent access to the proximal femur. The lateral neck remnant was removed with a rongeur. A blunt canal probe was used to identify the canal and trajectory for later broa jessica. A box osteotome initiated the broach course. A small curved rasp and a curved curette were used to work laterally. Broaching then began with a size 8 Corail broach. This was inserted manually around the trochanter and into the canal before mallet blows. The broach was seated to the neck cut level based on the neck cut and the preoperative template. Sequential broaching was continued until a tight fit was obtained with good rotational control of the femur. A trial standard neck was inserted along with a +5 trial head. The leg was brought out of extension and adduction and then reduced with traction and internal rotation. The leg was stable anteriorly in a position of 30 degrees of extension and 90 degrees of external rotation. Fluoroscopy was used to ensure there was no fracture and the stem was seated well. Leg lengths were checked with an AP pelvis and pelvic reference points. Physicians Interactive navigation system was used to confirm appropriate positioning and leg length and offset. This seemed to under represent the offset but the appearance appeared balance. Thus I obtained an AP pelvis and used traditional reference points which seemed to indicate appropriate positioning of the implants with accurate leg length and offset. Once content with the desired offset and leg lengths, the leg was brought back into extension, external rotation and adduction. The periosteum and surrounding tissue was injected with remaining portion of the silke-articular cocktail. The proximal femur was irrigated as well as the deep tissues. The Depuy Corail standard collared stem, size 14, was then manually inserted into the proximal femur making sure to control rotation. It was then malleted into position with light blows, giving breaks to allow bone expansion and decrease risk of fracture. The selected Depuy Altrx Ceramic Head, size 36+5mm, was then placed onto the clean and dry trunnion and secured with impaction onto the tapered fit. The leg was brought back out of extension and adduction and reduced with traction and internal rotation. Stability was confirmed with no shuck at 90 degrees of external rotation and 30 degrees of extension. No impingement through range of motion arc. Final x-ray images were obtained with fluoroscopy to confirm adequate positioning and no intraoperative fracture. The deep tissues were thoroughly irrigated with Irrisept chlorhexadine solution. The capsule was then reapproximated with the previously placed Ethibond sutures. The TFL fascia was finally closed with a No. 2 Stratafix, barbed suture. Deep tissues were then reapproximated with 0 Vicryl and a running 2-0 Vicryl. The skin was closed with a running 4-0 Monocryl in a subcuticular fashion. This was reinforced with skin glue. A Mepilex silver dressing was applied. At the end of the case, all counts were correct. Geovanna was transferred to the hospital bed without difficulty and suffering no apparent complication. Geovanna has a good prognosis. Physical therapy will start today and without restrictions, weight-bearing as tolerated. Aspirin 81mg BID will be used for DVT prophylaxis.
--- NOTE | 2021-11-10 11:07 | W.ANESPOSTOP ---
Postoperative Evaluation Date, Time and Location Date Performed: 11/10/21 Time Performed: 11:08 Patient Location: PACU Vital Signs Most Recent Imported Vital Signs: Most Recent Vital Signs Temp Pulse Resp BP Pulse Ox 36.4 C L 59 L 19 116/62 98 11/10/21 10:50 11/10/21 11:00 11/10/21 11:00 11/10/21 11:00 11/10/21 11:00 Pain Score Most Recent Pain Score: Most Recent Pain Score Pain Level 0 11/10/21 11:00 Assessment Mental Status: Awake (Alert & Oriented to Patient Baseline) Airway and Respiratory Function: Patent airway with normal (patient baseline) respiratory exam Cardiovascular Function: Hemodynamically Stable Hydration Status: Adequately Hydrated Nausea & Vomiting: No Nausea or Vomiting Pain: Pt. Denies Any Pain Peripheral Nerve Block: Patient did not receive a nerve block
== END 2021-11-10 15:47 | disposition home or self-care (01) ==
PROVIDERS: PCP Nurse Practitioner; Visit Provider Student in an Organized Health Care Education/Training Program
PROC: 0SR90JZ Replacement of Right Hip Joint with Synthetic Substitute, Open Approach (ICD-10-PCS; CPT 27130; principal; 2021-11-10 07:30)
DX: M16.0 Bilateral primary osteoarthritis of hip (principal); I10 Essential (primary) hypertension; F17.210 Nicotine dependence, cigarettes, uncomplicated
CPT/HCPCS: 27130; 20985; 87635; 97116; 97162; 73501; J0690; J1100; J2250; J2405

== ENCOUNTER 2021-11-22 14:23 | Outpatient (CLI) | payer OTHER, SELFPAY ==
--- NOTE | 2021-11-22 13:30 | DI.RAD_ITS ---
Exam(s) XR HIP PELVIS ADULT BL EXAM: XR HIP PELVIS ADULT BL CLINICAL HISTORY: status post bilateral NUBIA. TECHNIQUE: 2D digital imaging was performed. Three views. COMPARISON: CR XR PELVIS AP from 11/04/2021 XA XR HIP LT IN OR from 11/10/2021 XA XR HIP RT IN OR from 11/10/2021 FINDINGS: BONES: No acute fracture is present. No bony destructive lesion is seen. JOINTS: No dislocation present. Are bilateral hip prostheses which show satisfactory alignment. SOFT TISSUE: Normal. IMPRESSION: Bilateral hip prostheses. DATA REPOSITORY: RADIATION DOSE DELIVERED:
== END 2021-11-22 14:24 | disposition home or self-care (01) ==
LOC: DIORS 14:23
PROVIDERS: PCP Nurse Practitioner; Referring Provider Nurse Practitioner; Visit Provider Physician Assistant
DX: Z96.643 Presence of artificial hip joint, bilateral (principal)
CPT/HCPCS: 73521

== ENCOUNTER 2022-01-12 11:44 | Outpatient (CLI) | payer OTHER, SELFPAY ==
[2022-01-12 13:28] LABS: ALT 15 U/L (14-59); AST 16 U/L (15-37); Albumin 4.1 g/dL (3.4-5.0); Alkaline Phosphatase 118 U/L (46-116); Anion Gap 8.7 mmol/L (3-11); BUN 26 mg/dL (7-18); Bilirubin, Total 0.3 mg/dL (0.2-1.0); CO2 24.3 mmol/L (21.0-32.0); Calcium 9.3 mg/dL (8.5-10.1); Calculated LDL 133 mg/dL (<100); Chloride 102 mmol/L (98-107); Cholesterol 229 mg/dL (<200); Estimated GFR 62.13 (mL/min/1.73m2); Glucose 124 mg/dL (74-106); HDL Cholesterol 71 mg/dL (40-60); Potassium 3.6 mmol/L (3.5-5.1); Sodium 135 mmol/L (136-145); Total Protein 8.2 g/dL (6.4-8.2); Triglyceride 127 mg/dL (<150)
[2022-01-13 16:21] LABS: Hepatitis C Ab w Rflx HCV PCR Negative (Negative)
== END 2022-01-12 11:45 | disposition home or self-care (01) ==
LOC: LBO 11:45
PROVIDERS: PCP Nurse Practitioner; Visit Provider Nurse Practitioner
DX: I10 Essential (primary) hypertension (principal); Z11.59 Encounter for screening for other viral diseases
CPT/HCPCS: 36415; 80053; 80061; 86803

== ENCOUNTER 2022-01-13 14:15 | Outpatient (REF) | payer OTHER, SELFPAY ==
--- NOTE | 2022-01-13 13:50 | PAPFT_PTH ---
PATIENT: Geovanna Garcia LOC: [facility] U#:[id number] AGE/SX: 66/F ROOM: RE01/13/[address]: Vanessa Sanabria APRN : 1955 BED: DIS: 01/13/2022 SPEC #: [id number] RECD: 01/13/22 17:58 STATUS: JONAS REQ #: [id number] GIULIANA: 01/13/22 13:[address]: Vanessa Sanabria DEPT: [facility] Cytology RECD BY: Cristy Holcomb Tissues: 1 - CX/ENDOCX FOR PAP SMEARS Procedures: PAP THIN PREP/UVM Screening HPV DNA PROBE Comments: [id number]
== END 2022-01-13 14:16 | disposition home or self-care (01) ==
LOC: LBN 14:15
PROVIDERS: PCP Nurse Practitioner; Visit Provider Nurse Practitioner
DX: Z12.4 Encounter for screening for malignant neoplasm of cervix (principal); Z11.51 Encounter for screening for human papillomavirus (HPV)
CPT/HCPCS: 88142; 87624

== ENCOUNTER → 2022-02-03 01:14 | Outpatient (CLI) | payer OTHER, SELFPAY ==
--- NOTE | 2022-02-03 07:45 | DI.MAMMO_ITS ---
Exam(s) MAMMO SCREENING EXAM: MAMMO SCREENING CLINICAL HISTORY: screening,z12.39. TECHNIQUE: Bilateral full field digital CC and MLO mammographic images were obtained with 3D tomosyn thesis and utilizing computer aided detection (CAD). COMPARISON: None available at the time of this interpretation FINDINGS: No significant focal findings in the right breast. In the left breast there is well-defined oval nodule located approximately 6 o'clock position, 3 cm i n from the nipple and measuring approximately 10 by a 5 millimeters. There are no malignant-appearin g microcalcification groups in this region nor elsewhere in either breast There is no significant architectural distortion nor skin thickening-retraction. IMPRESSION: No radiographic evidence of malignancy in the right breast. In the left breast there is a 10 x 5 millimeter nodule approximately 6 o'clock position. Spot compre ssion view and ultrasound recommended BI-RADS Category 0 - Assessment Incomplete: Need additional imaging evaluation Breast Density - Category B - Scattered areas of fibroglandular density Breast density Category C or D implies that the patient has dense breast tissue. Dense breast tissue can make it harder to find cancer on a mammogram. Dense breast tissue is also associated with an incr eased risk of breast cancer. This information about the result of the mammogram report was provided to the patient to raise their awareness. Use this report when you speak with the patient about their risks for breast cancer, which includes their family history. At that time, you may recommend additional screening tests (Ultrasoun d or MRI) as these tests may add significant information. A negative radiographic report should not delay biopsy if a dominant or clinically suspicious mass is present. Up to ten percent of cancers are not identified on mammography. A negative report may reinforce clinical impression. Adenosis and dense breasts may obscure an underlying neoplasm. False positive reports average 6 to 10%. Patient will receive a letter notifying them of these results.
== END ==
PROVIDERS: PCP Nurse Practitioner; Visit Provider Nurse Practitioner
DX: Z12.31 Encounter for screening mammogram for malignant neoplasm of breast (principal); R92.8 Other abnormal and inconclusive findings on diagnostic imaging of breast
CPT/HCPCS: 77063; 77067

== ENCOUNTER 2022-05-30 19:41 | Outpatient (REF) | payer OTHER, SELFPAY ==
[2022-05-30 22:15] LABS: TSH (W/Ref FT4) 0.53 uIU/mL (0.36-3.74)
== END 2022-05-30 19:42 | disposition home or self-care (01) ==
LOC: LBN 19:41
PROVIDERS: PCP Nurse Practitioner; Visit Provider Nurse Practitioner
DX: L65.9 Nonscarring hair loss, unspecified (principal)
CPT/HCPCS: 84443

== ENCOUNTER 2022-07-03 13:54 | Outpatient (REF) | payer OTHER, SELFPAY ==
[2022-07-08 19:34] LABS: Lyme Ab w Rflx to Lyme Confirm Negative (Negative)
[2022-07-10 19:36] LABS: Anaplasma phagocytophilum Negative (Negative); B. miyamotoi PCR Negative (Negative); Babesia divergens/MO-1 Negative (Negative); Babesia duncani Negative (Negative); Babesia microti Negative (Negative); Ehrlichia chaffeensis Negative (Negative); Ehrlichia ewingii/canis Negative (Negative); Ehrlichia muris eauclairensis Negative (Negative)
== END 2022-07-03 13:55 | disposition home or self-care (01) ==
LOC: LBN 13:54
PROVIDERS: PCP Nurse Practitioner; Visit Provider Nurse Practitioner
DX: R50.9 Fever, unspecified; Z11.8 Encounter for screening for other infectious and parasitic diseases
CPT/HCPCS: 87798; 85025; 86618

== ENCOUNTER 2022-11-21 13:40 | Outpatient (CLI) | payer OTHER, SELFPAY ==
--- NOTE | 2022-11-21 14:45 | DI.RAD_ITS ---
Exam(s) XR HIP PELVIS ADULT BL EXAM: XR HIP PELVIS ADULT BL CLINICAL HISTORY: ANNUAL F/U S/P BILAT THAs. TECHNIQUE: 2D digital imaging was performed. Three views. COMPARISON: CR XR HIP PELVIS ADULT BL from 11/22/2021 FINDINGS: BONES: No acute fracture is present. No bony destructive lesion is seen. JOINTS: No dislocation present. There has been no change in the alignment of the bilateral prostheses .Mild degenerative changes of the SI joints. SOFT TISSUE: Calcified uterine fibroid. Suture material and surgical clips right lower quadrant. IMPRESSION: Stable appearance of bilateral hip prostheses. DATA REPOSITORY: RADIATION DOSE DELIVERED:
== END 2022-11-21 13:41 | disposition home or self-care (01) ==
LOC: DIORS 12-15 11:35
PROVIDERS: PCP Nurse Practitioner; Visit Provider Student in an Organized Health Care Education/Training Program
DX: Z96.643 Presence of artificial hip joint, bilateral (principal)
CPT/HCPCS: 73521

== ENCOUNTER 2024-02-13 22:57 | Emergency (ER) | payer OTHER, SELFPAY ==
--- NOTE | 2024-02-13 23:00 | DI.RAD_ITS ---
Exam(s) XR KNEE LT 4V AP,LAT,TIMOTHY,PAT EXAM: XR KNEE LT 4V AP,LAT,TIMOTHY,PAT CLINICAL HISTORY: slip on ice, fell directly on knee. TECHNIQUE: 2D digital imaging was performed. COMPARISON: CR,XR XR KNEE LT 3V AP,LAT,TIMOTHY from 06/06/2021 FINDINGS: Four views There is a nondisplaced fracture in the inferior 3rd of the patella, best evident on the lateral view . There is no patellar displacement within the intercondylar notch. There is a joint effusion. No other fractures identified. No degenerative joint space narrowing in all 3 compartments. IMPRESSION: Nondisplaced fracture in the inferior aspect of the patella. Appears to be predominantly a transvers e fracture. DATA REPOSITORY: RADIATION DOSE DELIVERED:
[2024-02-13 23:03] VITALS: BP 208/120; PULSE 98; RESP 16; TEMP 36.4; O2SAT 99
--- NOTE | 2024-02-13 23:04 | ED.GENADUL_ITS ---
Discharge Plan Disposition Patient Disposition: Home Condition: Good Discharge Details Clinical Impression: Left knee injury Primary Care Provider: Vanessa Sanabria ED Provider: Sergei Starkey Meds and New Rx's Prescriptions: Continued calcium carbonate-vitamin D3 [Caltrate with Vitamin D3] 600 mg-20 mcg (800 unit) tablet 2 tab PO DAILY cholecalciferol (vitamin D3) 25 mcg (1,000 unit) capsule 25 mcg PO DAILY ibuprofen 200 mg tablet 200 mg PO Q4H PRN garlic 5,000 mcg tablet 5 mg PO DAILY lisinopril 30 mg tablet 30 mg PO DAILY acetaminophen 500 mg tablet 500 mg PO Q6H PRN (Reason: pain) Qty: 60 2RF Discharge Instructions Instructions: How to Use Crutches, Knee Immobilizer (DC) Additional Instructions: You were seen after slip and fall with knee injury. X-rays suggest a nondisplaced fracture of your kneecap. Please wear the knee immobilizer until follow-up with orthopedics. Weight-bear as tolerated with crutches. Ice and elevate is much as possible. Use ibuprofen or acetaminophen for pain. You will need follow-up with occupational health and with orthopedics. Return to ED for severe worsening pain, numbness or weakness in the leg, other concerns. Stand Alone Forms: Work Release Referrals: [facility] [Provider Group] Occupational Medicine [Provider Group] HPI General Mode of arrival: ambulatory . Date/Time Provider Initiated Documentation: 02/13/24 23:04 . Limitations to Documentation: no limitations . Information obtained by: patient and RN notes reviewed . HPI Narrative: Patient was coming to work here at [employer] when she slipped and fell in the parking lot landing on her left knee. She denies any other injury. She was able to ambulate into the hospital on her own. Complains of left knee pain only. Denies any numbness or weakness distally. Denies any other injury. Related Data Home Medications ?Medication ?Instructions ?Recorded ?Confirmed acetaminophen 500 mg tablet 500 mg PO Q6H PRN pain #60 tabs 11/10/21 02/13/24 calcium 600 mg (as 2 tab PO DAILY 11/29/21 02/13/24 carbonate)-vitamin D3 20 mcg (800 unit) tablet (Caltrate with Vitamin D3) cholecalciferol (vitamin D3) 25 25 mcg PO DAILY 11/29/21 02/13/24 mcg (1,000 unit) capsule ibuprofen 200 mg tablet 200 mg PO Q4H PRN 01/10/22 02/13/24 garlic 5,000 mcg tablet 5 mg PO DAILY 02/13/24 02/13/24 lisinopril 30 mg tablet 30 mg PO DAILY 02/13/24 02/13/24 Previous Rx's ?Medication ?Instructions ?Recorded acetaminophen 500 mg tablet 500 mg PO Q6H PRN pain #60 tabs 11/10/21 Allergies Allergy/AdvReac Type Severity Reaction Status Date / Time No Known Allergies Allergy Verified 02/13/24 23:09 General NICK: 4 Review of Systems Narrative: Per HPI Exam Narrative Exam Narrative: Const: WDWN female in NAD. VS per triage. HEENT: NC/AT. Normal facial exam. Neck: Supple. Trachea midline. Lungs: Normal respiratory effort. Cor: RRR. Good distalal pulses. Neuro: A+O x 3. Normal speech, mentation, gait. Cranial nerves II - XII grossly intact. No gross motor or sensory deficit. Ext: No C/C/E. Patient able to flex and extend her knee on the left without difficulty. Abrasion over the patella. Mild tenderness over inferior patella. Ligaments appear intact. Good distal pulse, strength, sensation. Medical Decision Making Patient presenting to ED with slip and fall in parking lot while coming to work here. She has an abrasion over the patella of the left knee. Had a little bit of tenderness inferior portion of the patella. Quadricep and patella tendon intact with normal flexion extension of the knee. 4 view x-ray ordered. Per my review as well as preliminary radiology review there does appear to be suggestion of a nondisplaced fracture through the inferior portion of the patella. Patient will be placed in a knee immobilizer. Weightbearing as tolerated with crutches. Ice on and off and use ibuprofen or acetaminophen as needed for pain. Will refer to occupational health as well as to orthopedics for follow-up. Return precautions provided. Imaging Data Radiologic Study: Attestation: I personally reviewed and interpreted this imaging study as follows: Imaging: X-Ray My impression: See [facility] All Active Problems Left knee injury (Acute) Acquired hallux valgus of right foot (Acute) 08/25/22 [facility] Acquired hallux valgus of left foot (Acute) 08/25/22 [facility] Smoker (Acute) Medical History Hx of essential hypertension History of skull fracture age 9 Surgical History Status post bilateral total hip replacement (11/10/21) Fracture of left distal radius treated with closed reduction History of surgery on lower extremity Right thigh reconstructive surgery History of elbow surgery Left History of appendectomy Family History (Updated 01/13/22 @ 13:15 by Lisa Samano RN) Mother Cancer Endometrial Heart disease Sister Cancer Thyroid Depression Hypertension Anxiety Asthma Father Depression Heart disease Hypertension Anxiety Brother Hypertension Sister Anxiety Hypertension Paternal Grandmother Heart disease Social History Smoking/Tobacco Use Status: Current every day Tobacco Type: cigarettes Years smoked: 20 Tobacco: How many years used: 20 Quit status: has quit before Second Hand Exposure: Yes Smoking risk assessment performed?: Yes Alcohol Intake: former Drug use: Never Substance use type: does not use Adopted: No Caregiver/Support person: No Foster care: No Household members: spouse Housing: house Number of Children: 0 Communication Needs: None Education Level: vocational 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, 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 Pets and animals: Yes Pets and animals: cat(s) and dog(s) Sexually active: No Do you think of yourself as: straight/heterosexual Current gender identity: female What is your relationship status?: How often do you talk on the phone with friends or family?: twice per week How often do you get together with friends or relatives?: decline to answer Panel score (0-1 are the most socially isolated patients): 1 What type of physical activity do you participate in: walking Duration: 60-90 minutes/day Frequency: 3-4 times per week Nadege/Cheondoism: Scientology Special nadege needs: No Seatbelt use: always Helmet use: Yes Helmet use: always Drive intox or ride w/intox recycle driver: No Do you feel safe at home: Yes Do you feel safe in your relationship?: Yes Additional Social history: unable to assess
--- NOTE | 2024-02-14 01:00 | DI.VRAD_ITS ---
PROCEDURE INFORMATION: Exam: XR Left Knee Exam date and time: 02/13/2024 11:28 PM Age: 68 years old Clinical indication: Injury or trauma; Fall; Blunt trauma; Left; Injury date: 02/13/24; Injury details: Slip on ice, fell directly on L knee TECHNIQUE: Imaging protocol: Radiologic exam of the left knee. Views: 4 or more views. COMPARISON: MR LOWER JOINT LT WO 07/15/2021 10:05 AM FINDINGS: Bones/joints: Two AP views, a lateral view, and a sunrise view of the left knee are submitted. There is irregular linear lucency along the inferior aspect of the patella on the lateral view and along the posteromedial aspect of the patella on the sunrise view worrisome for a subtle nondisplaced fracture but not definitively evaluated by the plain film exam. The distal femur, proximal tibia, and proximal fibula appear intact. There appears to be a small knee effusion. Soft tissues: There is soft tissue swelling along the medial aspect of the knee on the sunrise view. IMPRESSION: Possible nondisplaced fracture of the patella, uncertain finding. CT imaging could be obtained for further evaluation. Dictated and Authenticated by: Josep Chang MD. Ordering:LEIGH Mai MD
[2024-02-14 01:17] VITALS: BP 192/98; PULSE 98; RESP 16; TEMP 37.2; O2SAT 99
== END 2024-02-14 01:18 | disposition home or self-care (01) ==
PROVIDERS: Emergency Provider Emergency Medicine; PCP Nurse Practitioner
DX: S82.035A Nondisplaced transverse fracture of left patella, initial encounter for closed fracture (principal); I10 Essential (primary) hypertension; F17.210 Nicotine dependence, cigarettes, uncomplicated; W00.0XXA Fall on same level due to ice and snow, initial encounter; Y93.01 Activity, walking, marching and hiking; Y92.481 Parking lot as the place of occurrence of the external cause; Y99.0 Civilian activity done for income or pay
CPT/HCPCS: 99283; 73564

== ENCOUNTER 2024-02-22 15:29 | Outpatient (CLI) | payer OTHER, SELFPAY ==
--- NOTE | 2024-02-22 13:00 | DI.RAD_ITS ---
Exam(s) XR KNEE LT 2V AP,LAT EXAM: XR KNEE LT 2V AP,LAT CLINICAL HISTORY: LEFT PATELLA FX. TECHNIQUE: 2D digital imaging was performed of the left knee. Two images were obtained. AP and lat eral views were obtained. COMPARISON: CR,XR XR KNEE LT 4V AP,LAT,TIMOTHY,PAT from 02/13/2024 FINDINGS: BONES: There has been no change in alignment of the fracture involving the inferior pole of the cheng lla. The fracture line is still visualized. No new fracture is seen. No bony destructive lesion is seen. JOINTS: The knee is normally aligned. No joint effusion is seen. No loose body. SOFT TISSUE: Normal. IMPRESSION: Stable patellar fracture. DATA REPOSITORY: RADIATION DOSE DELIVERED:
== END 2024-02-22 15:30 | disposition home or self-care (01) ==
LOC: DIORS 15:29
PROVIDERS: PCP Nurse Practitioner; Visit Provider Physician Assistant
DX: S82.035D Nondisplaced transverse fracture of left patella, subsequent encounter for closed fracture with routine healing (principal); X58.XXXD Exposure to other specified factors, subsequent encounter
CPT/HCPCS: 73560

== ENCOUNTER 2024-03-14 15:40 | Outpatient (CLI) | payer OTHER, SELFPAY ==
--- NOTE | 2024-03-14 12:45 | DI.RAD_ITS ---
Exam(s) XR KNEE LT 2V AP,LAT EXAM: XR KNEE LT 2V AP,LAT CLINICAL HISTORY: F/U FRACTURE. TECHNIQUE: 2D digital imaging was performed of the left knee. Two images were obtained. AP and lat eral views were obtained. COMPARISON: CR XR KNEE LT 2V AP,LAT from 02/22/2024 FINDINGS: BONES: The patellar fracture appears healed. The fracture line is no longer visualized. No bony de structive lesion is seen. JOINTS: The knee is normally aligned. No joint effusion is seen. No loose body. SOFT TISSUE: Normal. IMPRESSION: No acute abnormality. DATA REPOSITORY: RADIATION DOSE DELIVERED:
== END 2024-03-14 15:41 | disposition home or self-care (01) ==
LOC: DIORS 15:41
PROVIDERS: PCP Nurse Practitioner; Visit Provider Physician Assistant
DX: S82.015 Nondisplaced osteochondral fracture of left patella (principal); X58.XXXD Exposure to other specified factors, subsequent encounter
CPT/HCPCS: 73560

== ENCOUNTER 2024-04-15 16:07 | Outpatient (CLI) | payer OTHER, SELFPAY ==
--- NOTE | 2024-04-15 16:00 | DI.RAD_ITS ---
Exam(s) XR KNEE LT 2V AP,LAT EXAM: XR KNEE LT 2V AP,LAT INDICATION: left patella fracture. COMPARISON: No exams were available for comparison TECHNIQUE: 2D digital imaging was performed. Two views. FINDINGS: The patellar fracture has healed. There is mild disuse osteopenia. No new abnormalities. DATA REPOSITORY: RADIATION DOSE DELIVERED:
== END 2024-04-15 16:08 | disposition home or self-care (01) ==
LOC: DIORS 16:07
PROVIDERS: PCP Nurse Practitioner; Visit Provider Physician Assistant
DX: S82.035D Nondisplaced transverse fracture of left patella, subsequent encounter for closed fracture with routine healing (principal); X58.XXXD Exposure to other specified factors, subsequent encounter
CPT/HCPCS: 73560

== ENCOUNTER 2024-05-27 15:46 | Outpatient (CLI) | payer OTHER, SELFPAY ==
--- NOTE | 2024-05-27 15:55 | DI.RAD_ITS ---
Exam(s) XR KNEE LT 2V AP,LAT EXAM: XR KNEE LT 2V AP,LAT CLINICAL HISTORY: LEFT PATELLA FX. TECHNIQUE: 2D digital imaging was performed. Three views. COMPARISON: CR XR KNEE LT 2V AP,LAT from 03/14/2024 CR XR KNEE LT 2V AP,LAT from 04/15/2024 FINDINGS: BONES: No acute fracture is present. The previously noted patellar fracture has healed without defo rmity. No bony destructive lesion is seen. JOINTS: The knee is normally aligned. No joint effusion is seen. The joint spaces are maintained. SOFT TISSUE: Normal. IMPRESSION: Healing of patellar fracture. DATA REPOSITORY: RADIATION DOSE DELIVERED:
== END 2024-05-27 15:47 | disposition home or self-care (01) ==
LOC: DIORS 15:47
PROVIDERS: PCP Nurse Practitioner; Visit Provider Student in an Organized Health Care Education/Training Program
DX: S82.015 Nondisplaced osteochondral fracture of left patella (principal); X58.XXXD Exposure to other specified factors, subsequent encounter
CPT/HCPCS: 73560